=== PATIENT | female | born 1980 ===

== ENCOUNTER 2025-02-11 09:00 | Day surgery (SDC) | payer OTHER ==
[2025-02-04 10:14] VITALS: BP 118/77
[~2025-02-11] VITALS: Ht 165.1 cm; Wt 70.8 kg
[2025-02-11] MEDS ORDERED: LIDOCAINE HCL 1%/EPINEPHRINE 20ML VIAL IJ ONE (11:03)
[2025-02-11] MEDS ORDERED: BUPIVACAINE HCL/MPF 0.5% 30ML VIAL ONE (11:03)
[2025-02-11] MEDS ORDERED: HYDROGEN PEROXIDE 473 ML BOTTLE TOP ONE (11:55)
[2025-02-11] MEDS ORDERED: CEFAZOLIN SODIUM 1,000 MG VIAL IV ONE (12:15)
[2025-02-11] MEDS ORDERED: TRAMADOL HCL50 MG PO (12:56)
[2025-02-11] MEDS ORDERED: BACTRIM DS TAB1 EACH PO (12:58)
== END 2025-02-11 15:45 | disposition home or self-care (01) ==
LOC: CIR.AMB 09:00
PROVIDERS: ATTEND Surgery
DX: D49.2 Neoplasm of unspecified behavior of bone, soft tissue, and skin (principal); D21.0 Benign neoplasm of connective and other soft tissue of head, face and neck; L72.12 Trichodermal cyst